=== PATIENT | female | born 1995 | race Caucasian/White ===

== ENCOUNTER → 2018-02-03 | Outpatient (CLI) | payer OTHER ==
--- NOTE | 2018-02-07 09:22 | EEG PRO FEE REPORT ---
EEG INTERPRETATION PATIENT NAME: ANTON REDDING ROOM#: ORDER#: [id number] DATE OF STUDY: 02/03/2018 : 1995 REFERRING MD: JORGE L MARIA M.D. MEDICATIONS: Keppra, vitamins History This is a 22 year old right handed woman who is currently 25 weeks with a history of seizures. Her last seizure was five years ago. This EEG was requested for follow up on seizures. EEG Interpretation This EEG was recorded in the wake and drowsy states. The awake EEG is characterized by a well organized background With a well developed and reactive posterior dominant rhythm of 9 Hz. Drowsiness is characterized by slowing of the background rhythms. Photic stimulation resulted in a good driving response. Hyperventilation resulted in no significant changes. There was one sharp wave in the C4-P4 region during wakefulness. There was one sharply contoured wave form in the C3-P3 region during wakefulness. The EKG showed a regular rhythm. EEG Classification 1. Sharp wave, one right central-parietal region. EEG Impression This EEG is abnormal. There was one right central-parietal sharp wave. The left central-parietal sharply contoured waveform is not definitively epileptiform. INTERPRETING PHYSICIAN: NAYLA PEREZ M.D. /: [id number] TT: [id number] ID: [id number] /: [id number] TD: [id number] JOB: [id number] cc:Mecca GOODWIN M.D. > MTDD
== END ==
LOC: NEURO 08:19
PROVIDERS: ATTEND Pediatrics
DX: G40.909 Epilepsy, unspecified, not intractable, without status epilepticus (principal)
CPT/HCPCS: 95819

== ENCOUNTER → 2019-07-27 | Outpatient (CLI) | payer OTHER ==
--- NOTE | 2019-07-27 13:44 | NEURO WORKBENCH EEG REPORT ---
EEG Report Patient: Mary Ortez ID: [id number] Referring Doctor: Harsh Kang MD DOS: 07/27/2019 Medications: Keppra, OCP, Synthroid History This is a 23 year old right handed woman with a history of hypothyroidism since 2019, ELO. She had a prior EEG 02/03/2018. This EEG was requested for seizures. EEG Interpretation This EEG was recorded in the awake and drowsy states. The awake EEG is characterized by a well-organized background with a well-developed and reactive posterior dominant rhythm of 9.5Hz. The remainder of the background consisted of a mix of alpha and beta activity. Mu was present. Drowsiness is characterized by slowing of the background rhythms. Rudimentary vertex waves were seen in the midline head regions. Photic stimulation resulted in a good driving response. Hyperventilation resulted in generalized slowing of the background. There were rare bilateral independent sharp waves, two on the left and two on the right central-parietal regions. The EKG showed a regular rhythm. EEG Classification Sharp waves, rare, bilateral independent, central-parietal EEG Impression This EEG is abnormal. There were rare bilateral independent central-parietal sharp waves. Compared to the prior EEG dated 02/03/2018 it is similar but with more definitive sharp waves noted on the present recording. INTERPRETING NEUROLOGIST: Millie Ma MD, [facility] Board Certified in Neurology, with special qualification in Child Neurology, and in Clinical Neurophysiology [facility]
== END ==
LOC: NEURO 08:22
PROVIDERS: ATTEND Pediatrics
DX: G40.909 Epilepsy, unspecified, not intractable, without status epilepticus (principal)
CPT/HCPCS: 95819